=== PATIENT | female | born 1980 | race Caucasian/White ===

== ENCOUNTER 2022-03-13 06:09 | Emergency (ER) | payer OTHER ==
[2022-03-13] MEDS ORDERED: HYDROcodone/Acetaminophen 5/325 mg Tablet ONE (07:33)
== END 2022-03-13 09:02 | disposition home or self-care (01) ==
LOC: BURERS 06:09
DX: S43.102A Unspecified dislocation of left acromioclavicular joint, initial encounter (principal); I10 Essential (primary) hypertension; F17.210 Nicotine dependence, cigarettes, uncomplicated; Z79.899 Other long term (current) drug therapy; W19.XXXA Unspecified fall, initial encounter
CPT/HCPCS: 71250